=== PATIENT | male | born 1980 | race Caucasian/White ===

== ENCOUNTER 2018-02-19 14:10 | Emergency (ER) | payer MEDICAID, OTHER ==
[2018-02-19] MEDS: DIPHTH/TET/ACEL PERTUSS (ADULT) 0.5 ML VIAL IM (15:40)
[2018-02-19] MEDS: HYDROCODONE/APAP (5/325) TAB PO (15:41)
== END 2018-02-19 16:47 | disposition left against medical advice (07) ==
LOC: FTE 14:10
DX: S01.112A Laceration without foreign body of left eyelid and periocular area, initial encounter (principal); W01.0XXA Fall on same level from slipping, tripping and stumbling without subsequent striking against object, initial encounter; Y92.9 Unspecified place or not applicable; Z23 Encounter for immunization
CPT/HCPCS: 12011; 70450; 70486; 72125; 90471; 90715; 99285-25